=== PATIENT | female | born 1950 | race Caucasian/White ===

== ENCOUNTER → 2016-07-29 | Outpatient (CLI) | payer OTHER ==
--- NOTE | 2016-07-29 16:10 | MA ---
Screening Digital Mammogram With iCAD Analysis Clinical Indications: Routine screening. Her mother was diagnosed with breast cancer in her 30s. Technique: Standard cephalocaudal projections are obtained. Digital breast tomosynthesis was performe d in the MLO projection with reconstruction at 1.0 mm slice thickness and composite MLO views reconst ructed. This examination is processed by the iCAD computer aided detection system. Comparison: July 2015, May 2014, February 2013, January 2012, January 2011, January 2010, December 2008. Breast density: Type B; Scattered fibroglandular densities. Findings: CAD was reviewed. No masses, suspicious calcifications or secondary signs of malignancy are seen. There has been no significant change in the appearance of either breast. Impression: Negative mammogram. BI-RADS 1. Recommendation: Routine mammographic screening in one year. [facility] will send a result letter to the patient. Negative mammography should not preclude additional workup of a clinically suspicious finding. The patient's information is entered into a reminder system with a target due date for her next mammo gram.
== END ==
LOC: FIMAGING 07:50
DX: Z12.31 Encounter for screening mammogram for malignant neoplasm of breast (principal); Z80.3 Family history of malignant neoplasm of breast
CPT/HCPCS: G0202

== ENCOUNTER → 2016-09-30 | Outpatient (CLI) | payer OTHER | LOC: FIMAGING 08:46 | PROVIDERS: ATTEND Internal Medicine | DX: Z13.820 Encounter for screening for osteoporosis (principal); Z78.0 Asymptomatic menopausal state; Z82.62 Family history of osteoporosis ==

== ENCOUNTER → 2017-09-08 | Outpatient (CLI) | payer OTHER | LOC: FIMAGING 07:53 | PROVIDERS: ATTEND Internal Medicine | DX: Z12.31 Encounter for screening mammogram for malignant neoplasm of breast (principal); Z80.3 Family history of malignant neoplasm of breast ==

== ENCOUNTER 2017-11-18 22:15 | Emergency (ER) | payer OTHER ==
--- NOTE | 2017-11-18 22:22 | EDPHY ---
H & P Time Seen by Provider: 11/18/17 22:21 HPI/ROS: CHIEF COMPLAINT: Itchy rash HISTORY OF PRESENT ILLNESS: This is a 67-year-old female who presents with an itchy rash that began earlier this evening, after washing her hair. She initially noticed it on the back of her neck and is now spread onto the back of her scalp. The rash is bilateral. She also has some red raised areas on her right posterior forearm, just distal to the elbow. In addition, she has noticed similar lesions at the level of her waist on the right. She has not seen any other rash. She is not aware of using any new products or eating any different foods. No recent travel. At the end of September she had her 2nd shingles shot. She has had shingles in the past. She was recently started on minocycline and a Flagyl cream for rosacea and dermatitis. No recent travel. She took 50 mg of Benadryl about 2 hr ago. REVIEW OF SYSTEMS: A ten point review of systems was performed and is negative with the exception of the items mentioned in the HPI. Past medical history: 1. Filamentary keratosis 2. 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 She is here with her . No tobacco products. General Appearance: Alert. Vital signs reviewed. Blood pressure 210/96 at triage. Head: Normocephalic. Wheels on the back of her neck extending on to occiput. Eyes: Pupils equal and round, no conjunctival injection, no discharge. Anicteric. ENT, Mouth: Mucous membranes are moist, no oropharyngeal erythema or edema. Managing secretions easily. Neck: No lymphadenopathy. Trachea midline. Respiratory: Lungs are clear to auscultation; no wheezes, rales, or rhonchi. Cardiovascular: Regular rate and rhythm; no murmur, rub, or gallop. Gastrointestinal: Abdomen is soft and nontender. Skin: Warm and dry, normal color. Wheels as per Head exam and also in a 6 cm linear array on her right mid abdomen at the level of her waist and on her right arm just distal to the elbow. Extremities: No lower extremity edema, no calf tenderness or swelling. Neurological: Alert and oriented. Moving all four extremities easily and equally. Psychiatric: Normal affect. - Medical/Surgical History Hx Asthma: Yes Other PMH: med hx-keratitis,gerd and cholesterol, lichen lunas. sueg- rt wrist and left elbow - Social History Smoking Status: Unknown if ever smoked Constitutional: Initial Vital Signs Temperature (C) 37.0 C 11/18/17 22:26 Heart Rate 104 H 11/18/17 22:26 Respiratory Rate 18 11/18/17 22:26 Blood Pressure 216/94 H 11/18/17 22:26 O2 Sat (%) 96 11/18/17 22:26 O2 Delivery Mode Room Air Allergies/Adverse Reactions: codeine [Codeine] Allergy (Intermediate, Verified 05/31/15 12:17) Hives ibuprofen Allergy (Intermediate, Verified 05/31/15 12:17) GASTRIC UPSET Home Medications: Medication Instructions Recorded Atorvastatin Calcium 05/31/15 Drops For Dry Eyes 05/31/15 Restasis Opht Drops(RX) 05/31/15 Minocycline HCl 11/18/17 Pantoprazole Sodium 11/18/17 methylPREDNISolone [Medrol Dose 1 each PO AD #1 ea 11/18/17 Hao] Medical Decision Making ED Course/Re-evaluation: Urticarial rash of unknown origin. She has taken Benadryl, 50 mg within the last 2 hr. Will start prednisone and Pepcid. 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 She will discontinue the minocycline, and was told that she could do so after 2 weeks. Danger signs reviewed with her. She was initially tachycardic and hypertensive. She was not tachycardic at the time of my exam. She has had systolic blood pressures as high as 180 in the past. I have strongly advised her to have this followed up with her primary care physician within the next couple of weeks. Differential Diagnosis: Considered a differential diagnosis that includes but is not limited to anaphylaxis, allergic reaction, urticaria, shingles, insect bite. Departure - Departure Disposition: Home, Routine, Self-Care Clinical Impression: Urticaria Condition: Good Instructions: Urticaria (ED) Additional Instructions: It is not clear what is caused this itchy urticarial rash. I recommend that you continue with the Benadryl, taking it on a regular basis as per the instructions on the packaging. Take the prednisone as prescribed. You received your 1st dose here tonight. Take Pepcid, according to the instructions on the packaging, as long as you are taking the prednisone. Stop taking the minocycline and call your interactive media marketing director tomorrow. She might want to look at this rash. You might try Sarna lotion for the itching. You can buy this [id number] in any drug store. Prescriptions: methylPREDNISolone [Medrol Dose Hao] 1 each PO AD #1 ea
[2017-11-18 22:29] VITALS: BP 216/94
[2017-11-18] MEDS ORDERED: predniSONE 20 MG TAB PO ONE (22:44)
== END 2017-11-18 22:55 | disposition home or self-care (01) ==
LOC: CED 22:15
DX: L50.9 Urticaria, unspecified (principal); J45.909 Unspecified asthma, uncomplicated
CPT/HCPCS: 99283; J7512

== ENCOUNTER 2017-12-31 11:04 | Day surgery (SDC) | payer OTHER ==
[2017-12-31] MEDS ORDERED: NALOXONE HCL 0.4 MG/ML INJ IVP PRN (11:13)
[2017-12-31] MEDS ORDERED: HEPARIN 10,000 UNIT/10 ML MDV (1,000 UNIT/ML) IVP PRN (11:13)
[2017-12-31] MEDS ORDERED: MEPERIDINE 25 MG/ML SYR IVP PRN (11:13)
[2017-12-31] MEDS ORDERED: GLUCAGON HCL 1 MG VIAL IVP PRN (11:13)
[2017-12-31] MEDS ORDERED: PROTAMINE SULFATE 50 MG/5 ML VIAL IVP PRN (11:13)
[2017-12-31] MEDS ORDERED: FLUMAZENIL 0.5 MG/5 ML MDV IVP PRN (11:13)
[2017-12-31] MEDS ORDERED: ALTEPLASE 2 MG VIAL IVP PRN (11:13)
[2017-12-31] MEDS ORDERED: MIDAZOLAM 2 MG/2 ML VIAL IVP PRN (11:13)
[2017-12-31] MEDS ORDERED: fentaNYL 100 MCG/2 ML INJ IVP PRN (11:13)
[2017-12-31] MEDS ORDERED: NS 1,000 ML IV SCH (11:15)
[2017-12-31] MEDS ORDERED: FLUMAZENIL 0.5 MG/5 ML MDV IVP ONE (11:16)
[2017-12-31] MEDS ORDERED: NALOXONE HCL 0.4 MG/ML INJ ONE (11:16)
[2017-12-31] MEDS ORDERED: MIDAZOLAM 2 MG/2 ML VIAL ONE (11:17)
[2017-12-31] MEDS ORDERED: fentaNYL 100 MCG/2 ML INJ ONE (11:17)
--- NOTE | 2017-12-31 13:03 | PDPROPOC ---
Sedation Plan of Care Sedation Plan of Care: vital signs stable, mental status noted, patient educated of risks, benefits, alternatives, patient can tolerate sedation ASA Classification: ASA 2 Planned drugs: fentanyl, midazolam Mallampati Score: Class 2 Mallampati Reference Image: Patient passed 3-3-2 rule?: Yes
--- NOTE | 2017-12-31 13:03 | PDHPUP ---
History & Physical Update H&P update statement: This history and physical update is based on an assessment of the patient which was completed after admission or registration (within 24 hours), but prior to the surgery/procedure. H&P update: H&P reviewed & patient examined, no change in patient's condition since H&P completed
[2017-12-31 14:11] VITALS: BP 137/65
--- NOTE | 2017-12-31 14:13 | POSTOPPROG ---
Post Op Note Date of Operation: 12/31/17 Surgeon: Fred Lehman Senior Wealth Advisor: none Anesthesiologist: none Anesthesia: IV Sedation Pre-op Diagnosis: cerebral aneurysms Post-op Diagnosis: same Indication: same Procedure: cerebral angiogram Findings: right MCA and ophthalmic aneurysms, see dictation Inf/Abcess present in the surg proc area at time of surgery?: No Depth: Superfical (Skin SQ) EBL: Minimal
[2017-12-31] MEDS ORDERED: ONDANSETRON 4 MG/2 ML VIAL IVP PRN (14:26)
[2017-12-31] MEDS ORDERED: OXYCODONE/APAP 5/325 TAB PO PRN (14:26)
== END 2017-12-31 18:45 | disposition home or self-care (01) ==
LOC: FIMAGING 11:04
PROVIDERS: ATTEND Neurological Surgery
DX: I67.1 Cerebral aneurysm, nonruptured (principal); I10 Essential (primary) hypertension; Z87.891 Personal history of nicotine dependence
CPT/HCPCS: 36224; 36226; 99152; C1769; J2250; J2310; J3010

== ENCOUNTER → 2018-08-03 | Outpatient (CLI) | payer OTHER ==
[~2018-08-03] MED LIST: GADOBUTROL 10 ML VIAL IVP ONE
== END ==
LOC: FIMAGING 06:27
PROVIDERS: ATTEND Physician Assistant
DX: I67.1 Cerebral aneurysm, nonruptured (principal)
CPT/HCPCS: 70544; 70553; A9585; 82565-PO

== ENCOUNTER 2018-08-10 17:29 | Emergency (ER) | payer OTHER ==
--- NOTE | 2018-08-10 18:09 | EDPHY ---
H & P Stated Complaint: irregular heartbeat Time Seen by Provider: 08/10/18 17:34 HPI/ROS: This patient complains of Hypertension despite taking her antihypertensive medications and also irregular heart rhythm morning on her blood pressure monitor/cough from home. She has not particularly felt obvious heart palpitations except for perhaps a subtle intermittent skipped beat. She came in for evaluation by private vehicle with her spouse due to the symptoms. She admits that she feels anxiety and grief due to diagnosis over the past 10 days of her with malignant lung cancer. She was started on 9 days ago on sertraline for anxiety due to her 's illness. She also started lisinopril 10 mg tabs 9 days ago to take in addition to her hydrochlorothiazide and amlodipine 25 & 5 mg respectively that she has been on for some time now. ROS: Constitutional: She denies any fevers. HEENT: No complaints Pulmonary: No shortness of breath or cough Neuro: No headache Cardiovascular: No chest pain. She does describe slight heaviness in her chest that she feels is attributable to grief. Musculoskeletal: She reports mild to moderate mid back pain feels consistent with her musculoskeletal pain she attributes to her spinal stenosis. Integumentary: No skin rash or diaphoresis 10 point review of symptoms is performed and otherwise negative with exception of pertinent positives and negatives listed in HPI and ROS Source: Patient Exam Limitations: No limitations - Medical/Surgical History Hx Asthma: Yes Hx Chronic Respiratory Disease: No Hx Diabetes: No Hx Cardiac Disease: No Hx Renal Disease: No Hx Cirrhosis: No Hx Alcoholism: No Hx HIV/AIDS: No Hx Splenectomy or Spleen Trauma: No Other PMH: med hx-keratitis,gerd and cholesterol, lichen lunas. 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 - Family History Significant Family History: No pertinent family hx - Social History Smoking Status: Former smoker Alcohol Use: Rarely Drug Use: None Additional Social History: Her Rober diagnosis of metastatic lung cancer last week. - Physical Exam Exam: General Appearance: Alert, no distress. Eyes: Pupils equal and round no pallor or injection. ENT, Mouth: Mucous membranes moist. Respiratory: There are no retractions, lungs are clear to auscultation. Cardiovascular: Regular rate and rhythm. No murmur gallop or rub. She does have occasional extra beats with PVCs on the monitor. Gastrointestinal: Abdomen is soft and nontender, no masses, bowel sounds normal. Neurological: GCS 15. Skin: Warm and dry, no rashes. Musculoskeletal: Neck is supple nontender. Extremities are symmetrical, full range of motion. Psychiatric: Mood and affect are normal DIFFERENTIAL DIAGNOSIS: After history and physical exam differential diagnosis was considered for hypertension, anxiety, PVCs, grief response, anemia, metabolic disarray, hypertensive urgency, rule out hypertensive emergency Constitutional: Initial Vital Signs Temperature (C) 37.0 C 08/10/18 17:36 Heart Rate 78 08/10/18 17:36 Respiratory Rate 18 08/10/18 17:36 Blood Pressure 174/88 H 08/10/18 17:36 O2 Sat (%) 96 08/10/18 17:36 O2 Delivery Mode Room Air Allergies/Adverse Reactions: codeine [Codeine] Allergy (Intermediate, Verified 08/10/18 17:38) Hives minocycline [From Minocin] Allergy (Intermediate, Verified 08/10/18 17:38) Hives amoxicillin Allergy (Verified 08/10/18 18:57) Home Medications: Medication Instructions Recorded Atorvastatin Calcium 40 mg PO DAILY 05/31/15 Restasis Opht Drops(RX) 1 drop EACHEYE BID 05/31/15 Pantoprazole Sodium 40 mg PO DAILY 11/18/17 Amlodipine Besylate 5 mg PO DAILY 12/24/17 HCTZ (*) 25 mg PO DAILY 12/24/17 [place] Tears 1 drop EACHEYE 5XD 12/24/17 valACYclovir 500 mg PO DAILY 12/24/17 Herbals/Supplements -Info Only 1 ea PO DAILY 01/18/18 Loteprednol 0.5% [Lotemax 0.5% 1 drops OP PRN PRN 01/18/18 (RX)] Loteprednol Etabonate [Lotemax] 0.3 gm OP DAILY PRN 01/18/18 N-Acetylcysteine Eye Drops 1 drop EACHEYE PRN PRN 01/18/18 Petrolat,Wht/Min Oil/Sod Chl 1 bola EACHEYE HS 01/18/18 [Refresh P.m. Ointment] metroNIDAZOLE [Metronidazole] 1 bola TP DAILY PRN 01/18/18 LORAZEPAM 5 mg PO PRN PRN 02/01/18 Hydrocodone/APAP 5/325 [[place] 1 - 2 tab PO Q4 PRN tab 02/03/18 5/325 (*)] Hydrochlorothiazide 08/10/18 Lisinopril 08/10/18 Sertraline HCl 08/10/18 Medical Decision Making - Diagnostics EKG Interpretation: 12 lead EKG indication heart palpitations and hypertension Performed at 5:40 p.m. Sinus rhythm at 68 Intervals: Normal throughout ST segments: Normal throughout [place]: Normal throughout Overall assessment: Normal EKG ED Course/Re-evaluation: IV, monitor After reassurance without other interventions her blood pressure improved to 120s over 70s. She had occasional PVCs on the monitor but no sequential PVCs Review of her labs showed at CBC with slight elevation of her white count 11 but otherwise normal, normal point of care basic metabolic panel, troponin and urine dip. No evidence of hypertensive emergency/evidence of end-organ injury. I think that her hypertension and PVCs attributable to grief response upon learning of her 's metastatic lung cancer diagnosis. Counseled regarding grief response and stress reactions with plan to have daily exercise and relaxation, continue her current medications, eat 3 meals a day, follow up with primary care physician for any ongoing symptoms and increase her amlodipine from 5-10 mg a day if she has persistent blood pressures greater than 160/90 despite taking her current meds. She understands need to return emergency department should she develop any significant worsening of her symptoms despite the treatment plan. - Data Points Laboratory Results: Laboratory Results 08/10/18 17:48 08/10/18 08/10/18 08/10/18 17:57 17:56 17:48 WBC 11.05 10^3/uL H 10^3/uL (3.80-9.50) RBC 4.59 10^6/uL 10^6/uL (4.18-5.33) Hgb 15.1 g/dL g/dL (12.6-16.3) Hct 41.3 % % (38.0-47.0) MCV 90.0 fL fL (81.5-99.8) MCH 32.9 pg pg (27.9-34.1) MCHC 36.6 g/dL g/dL (32.4-36.7) RDW 12.4 % % (11.5-15.2) Plt Count 212 10^3/uL 10^3/uL (150-400) MPV 10.7 fL fL (8.7-11.7) Neut % (Auto) 55.9 % % (39.3-74.2) Lymph % (Auto) 32.6 % % (15.0-45.0) [place] % (Auto) 10.5 % % (4.5-13.0) Eos % (Auto) 0.4 % L % (0.6-7.6) Baso % (Auto) 0.3 % % (0.3-1.7) Nucleat RBC Rel Count 0.0 % % (0.0-0.2) Absolute Neuts (auto) 6.19 10^3/uL 10^3/uL (1.70-6.50) Absolute Lymphs (auto) 3.60 10^3/uL H 10^3/uL (1.00-3.00) Absolute Monos (auto) 1.16 10^3/uL H 10^3/uL (0.30-0.80) Absolute Eos (auto) 0.04 10^3/uL 10^3/uL (0.03-0.40) Absolute Basos (auto) 0.03 10^3/uL 10^3/uL (0.02-0.10) Absolute Nucleated RBC 0.00 10^3/uL 10^3/uL (0-0.01) Immature Gran % 0.3 % % (0.0-1.1) Immature Gran # 0.03 10^3/uL 10^3/uL (0.00-0.10) POC Sodium 140 mEq/L mEq/L (135-145) POC Potassium 3.3 mEq/L mEq/L (3.3-5.0) POC Chloride 98.0 mEq/L mEq/L (97-110) POC Total CO2 29 mEq/L mEq/L (22-31) POC BUN 14 mg/dL mg/dL (7-23) POC Creatinine 0.8 mg/dL mg/dL (0.6-1.0) POC Glucose 108 mg/dL H mg/dL (70-100) POC Calcium 10.0 mg/dL mg/dL (8.5-10.4) POC Troponin I 0.00 ng/mL ng/mL (0.00-0.08) Point of Care Test Results: Chemistry 08/10/18 08/10/18 17:57 17:56 POC Sodium 140 mEq/L mEq/L (135-145) POC Potassium 3.3 mEq/L mEq/L (3.3-5.0) POC Chloride 98.0 mEq/L mEq/L (97-110) POC Total CO2 29 mEq/L mEq/L (22-31) POC BUN 14 mg/dL mg/dL (7-23) POC Creatinine 0.8 mg/dL mg/dL (0.6-1.0) POC Glucose 108 mg/dL H mg/dL (70-100) POC Calcium 10.0 mg/dL mg/dL (8.5-10.4) POC Troponin I 0.00 ng/mL ng/mL (0.00-0.08) Urine Dip Collection Date 08/10/18 Collection Time 18:29 Specific [place] (1.002-1.030) 1.020 PH (5.0-7.5) 7.0 Leukocytes (Negative) Negative Nitrites (Negative) Negative Protein (Negative) Negative Glucose (Negative) Negative Ketones (Negative) Negative Urobilnogen (0.2-1.0 EU) 0.2 Bilirubin (Negative) Negative Blood (Negative) Negative Departure - Departure Disposition: Home, Routine, Self-Care Clinical Impression: PVC's (premature ventricular contractions), Essential hypertension, Grief reaction Condition: Fair Instructions: Grief and Loss (ED), Chronic Hypertension (ED), Premature Ventricular Contractions (ED) Additional Instructions: Diagnosis: 1. Grief reaction 2. Essential hypertension 3. PVCs Your EKG, blood count, electrolytes, kidney function, heart enzyme and urinalysis showed no significant abnormalities tonight. He had occasional premature ventricular contractions on our heart monitor. This is a common finding and can occur in response to stress. Plan: Continue your blood pressure medications Check your blood pressure once a day but do not be concerned with "abnormal rhythm" on your blood pressure cough machine at home given that it is a [place] this and response to occasional PVCs. If you have repeated blood pressures that are higher than 160/90 despite taking your current blood pressure medications then consider adding an additional dose of amlodipine per day to total of 10 mg of amlodipine a day. Follow up with primary care physician for any ongoing symptoms Daily exercise as described Daily relaxation Return to the emergency department for any significant worsening despite treatment plan Referrals: Lindsey Almeida MD [Primary Care Provider] - As per Instructions
[2018-08-10 19:02] LABS: PLATELET COUNT 212 10^3/uL (150-400)
[2018-08-10 19:09] VITALS: BP 134/77
--- NOTE | 2018-08-10 19:11 | CPEKG ---
Test Reason : OPEN Blood Pressure : / mmHG Vent. Rate : 068 BPM Atrial Rate : 067 BPM P-R Int : 126 ms QRS Dur : 098 ms QT Int : 431 ms P-R-T Axes : 010 -06 010 degrees QTc Int : 459 ms Sinus rhythm Confirmed by Sorin Santana ([id number]) on 08/10/2018 7:10:40 PM Referred By: Sorin Santana Confirmed By:Sorin Santana
== END 2018-08-10 19:22 | disposition home or self-care (01) ==
LOC: CED 17:29
DX: I49.3 Ventricular premature depolarization (principal); I10 Essential (primary) hypertension; F43.8 Other reactions to severe stress; Z79.899 Other long term (current) drug therapy
CPT/HCPCS: 80048-ER; 84484-ER; 99284-ER

== ENCOUNTER → 2018-09-14 | Outpatient (CLI) | payer OTHER | LOC: FIMAGING 08:13 | PROVIDERS: ATTEND Internal Medicine | DX: Z12.31 Encounter for screening mammogram for malignant neoplasm of breast (principal); Z85.3 Personal history of malignant neoplasm of breast ==

== ENCOUNTER → 2018-12-28 | Outpatient (CLI) | payer OTHER | LOC: FIMAGING 08:15 ==